=== PATIENT | female | born 1980 | race Caucasian/White ===

== ENCOUNTER 2022-07-14 07:03 | Inpatient (IN) ==
--- NOTE | 2022-07-05 08:24 | Anesthesiology Consultation ---
Date of Service July 05, 2022 Assessment & Plan (1) Encounter for pre-operative examination: Chart Review Chart Review: entry specialist initiated -COVID screening: Per PAT nursing assessment on 07/04/22. No known COVID-19 positive contacts or current COVID-19 related symptoms. Travel screen negative. Patient is NOT vaccinated for Covid. At surgeon discretion if preop Covid testing being done. Patient seen by pediatric cardiology/ cardiology 03/21/2022 = patient referred for assessment echocardiography due to advanced maternal age. is otherwise uncomplicated. echo appears structurally normal. No evidence of major congenital heart disease is detected. Normal biventricular systolic function. No further follow-up in cardiology clinic as necessary. No contraindication from a cardiac standpoint for delivery at [facility]. History Surgery Operation Date: 07/14/22 07:30 Proposed Procedures p Section (Delivery of Baby Through Abdominal Incision) - Nellie Mccarthy MD, FACOG Height/Weight Height: 5 ft 7 in Weight: 96.162 kg Allergies Allergy/AdvReac Type Severity Reaction Status Date / Time morphine AdvReac Intermediate itching Verified 07/04/22 15:15 Medications Home Medications Medication Instructions Recorded Confirmed Last Taken aspirin 81 mg tablet,delayed 81 mg PO QAM 07/04/22 07/04/22 Unknown release ferrous sulfate 325 mg (65 mg 325 mg PO Q2D 07/04/22 07/04/22 Unknown iron) tablet vit no.133-ferrous 1 tab PO QAM 07/04/22 07/04/22 Unknown fumarate 28 mg-folic acid 800 mcg tablet () Past Medical History Medical History History of pre-eclampsia Past Family History Family History Other Heart disease Hypertension No family history of adverse response to anesthesia Past Surgical History Surgical History S/P section 05/2002 Social History Smoking Status: Former smoker Do You Dip or Chew Tobacco: No Smoking End Date: 10/2021 Hx Alcohol Use: No Hx Substance Use: No substance use type: does not use
--- NOTE | 2022-07-11 16:42 | History & Physical Report ---
Date of Service July 11, 2022 Assessment & Plan (1) Previous delivery affecting , antepartum: (2) Supervision of elderly multigravida: Plan Patient presents for elective repeat c/s and tubal ligation. The risks of surgery were discussed with the patient including bleeding, transfusion, infection and poor wound healing, damage to surrounding structures with need for further surgery, injury to baby, and the other risks with surgery--heart attack, blood clot, stroke, . Plan bilateral salpingectomy at the time. Discussed permanence, other options for control, regret. Declines other options for control . Consent reviewed and signed. Questions asked and answered. History of Present Illness Chief Complaint: presents for repeat Primary Care Provider: Keenan Quiñonez MD Patient is a 42yowf with iup at 39 3/7 weeks who presents for elective repeat . She also desires tubal ligation at the time of surgery. She is advanced maternal age and has had normal testing. A hx of preeclampsia in past . No issues this . and Delivery Plans AMA>40@del *Anatomy Scan @ 20wks * Echo - Normal *Growth scan @32wks - 66% *Weekly NST's @36 wks *Twice weekly NST @38wks *Weekly AV's @38wks *Deliver by 41 wks Prior Section affecting C/S SCHEDULED FOR 07/14/[address] HARDY SIGNED MA-31 FORm--desires tubal Preeclampsia in prior - 81mg ASA - PIH labs and 24hr U/protein Rh Negative Rhogam given 04/26/22- OB Labs: Blood Type O Negative 12/23/21 Antibody ScreenE NEGATIVE 04/26/22 Hemoglobin 10.9 g/dl (12.0-16.0) L 04/26/22 Hematocrit 32.1 % (34.1-44.9) L 04/26/22 Mean Corpuscular Volume 87.3 fL (80-100) 12/23/21 Platelet Count 282 K/uL (130-400) 12/23/21 Rubella IgG Antibody Immune (Immune) 12/23/21 Rapid Plasma Reagin Nonreactive (Nonreactive) 12/23/21 Hepatitis B Surface Antigen. NON-REACTIVE (NON-REACTIVE) 12/23/21 Hepatitis C Antibody (EIA) NON-REACTIVE (NON-REACTIVE) 12/23/21 HIV (1&2) Ag and Ab Confirmation NON-REACTIVE (NON-REACTIVE) 12/23/21 Glucose 1 Hour 50 gm Load 173 mg/dl (70-130) H 04/26/22 OB Optional Labs: Chlamydia trachomatis RNA NOT DETECTED (NOT DETECTED) 12/23/21 Neisseria gonorrhoeae RNA NOT DETECTED (NOT DETECTED) 12/23/21 GBS neg did not do genetics/cf/sma passed 28 wekk 2 hr gtt Allergies Allergy/AdvReac Type Severity Reaction Status Date / Time morphine AdvReac Intermediate itching Verified 07/11/22 09:50 Home Medications Medication Instructions Recorded Confirmed Type aspirin 81 mg tablet,delayed 81 mg PO QAM 07/04/22 07/11/22 History release ferrous sulfate 325 mg (65 mg 325 mg PO Q2D 07/04/22 07/11/22 History iron) tablet vit no.133-ferrous 1 tab PO QAM 07/04/22 07/11/22 History fumarate 28 mg-folic acid 800 mcg tablet () Patient History Medical History History of pre-eclampsia Surgical History S/P section 05/2002 Family History Other Heart disease Hypertension No family history of adverse response to anesthesia Social History Smoking Status: Former smoker Second Hand Exposure: No; Hx Alcohol Use: No Hx Substance Use: No Preferred Language: Serbian Communication Ability: Effective Electrical Tech/Project Manager Required: No Beliefs That Will Affect Care: None marital status: Single marital status details: Will (38) [phone] Current Living Situation: Significant Other Current Living Situation Comment: lives with fob, son, and 2 dogs. 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 Feels Safe at Home: Yes Assistive Devices: None OB History Past Pregnancies Del. Date GA wks Lbr Lgth wt Sex Type del Anes Place Del Prov ? Comment 06/10/02 38 7lb 10oz. 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
[~2022-07-14 07:03] MED LIST: CITRIC ACID/SODIUM CITRATE 15 ML UDC PO SCH; LACTATED RINGER'S 1,000 ML IV SCH; ceFAZolin 3,000 MG in DEXTROSE 5% 50 ML IV SCH
--- NOTE | 2022-07-14 07:37 | History & Physical Bridge Note ---
Date of Service July 14, 2022 History & Physical Bridge Note I have examined the patient, reviewed the History & Physical and in the interval since the performance of the History & Physical I have noted the following changes of clinical significance: no changes noted
[2022-07-14 07:47] LABS: Hematocrit (blood only) 35.3 % (34.1-44.9); Hemoglobin 12.2 g/dl (12.0-16.0); Mean Corpuscular Hemoglobin 30.3 pg (25.0-34.0); Mean Corpuscular Hgb Conc 34.6 g/dL (32.0-36.0); Mean Corpuscular Volume 87.6 fL (80.0-100.0); Mean Platelet Volume 11.4 fL (9.4-12.3); Platelet Count 204 K/uL (130-400); RDW Coefficient of Variation 13.7 % (11.5-14.5); RDW Standard Deviation 43.5 fL (36.4-46.3); Red Blood Count 4.03 M/uL (3.93-5.22); White Blood Count 9.62 K/ul (4.8-10.8)
[2022-07-14] MEDS ORDERED: ONDANSETRON INJ 2 MG/ML 2 ML VIAL ONE (09:00)
[2022-07-14] MEDS ORDERED: PHENYLEPHRINE 100MCG/ML 5ML SYR ONE (09:00)
[2022-07-14] MEDS ORDERED: OXYTOCIN 10 UNITS/ML 10ML VIAL ONE (09:00)
[2022-07-14] MEDS ORDERED: MoRPHine SULFATE PF 1 MG/ML 10 ML AMP/VIAL ONE (09:01)
[2022-07-14] MEDS ORDERED: fentaNYL citrate 100 MCG/2 ML VIAL ONE (09:01)
[2022-07-14] MEDS ORDERED: NALOXONE HCL 0.4 MG/1 ML VIAL/CARP IV PRN (10:05)
[2022-07-14] MEDS ORDERED: MoRPHine SULFATE 2 MG/ML CARP IV PRN (10:05)
[2022-07-14] MEDS ORDERED: NALOXONE HCL 1 MG in SODIUM CHLORIDE 0.9% 1000ML 1,000 ML IV PRN (10:05)
[2022-07-14] MEDS ORDERED: NALOXONE HCL 0.08 MG in SYRINGE 1.8 ML IV PRN (10:05)
[2022-07-14] MEDS ORDERED: ONDANSETRON INJ 2 MG/ML 2 ML VIAL IV PRN (10:05)
[2022-07-14] MEDS ORDERED: diphenhydrAMINE 50 MG/ML VIAL IV PRN (10:05)
[2022-07-14] MEDS ORDERED: NALBUPHINE HCL INJ 10 MG/ML AMP IV PRN (10:05)
[2022-07-14] MEDS ORDERED: KETOROLAC 30 MG/ML VIAL IV PRN (10:05)
[2022-07-14] MEDS ORDERED: MoRPHine SULFATE PF 1 MG/ML 10 ML AMP/VIAL INT SPINAL ONE (10:05)
[2022-07-14] MEDS ORDERED: LACTATED RINGER'S 500 ML IV PRN (10:05)
[2022-07-14] MEDS ORDERED: ePHEDrine sulfate 50 MG/ML AMP IV PRN (10:05)
[2022-07-14] MEDS ORDERED: SODIUM CHLORIDE 0.9% 1000ML 1,000 ML IV SCH (10:15)
[2022-07-14] MEDS ORDERED: NO NARCOTICS OR SEDATIVES SCH (10:15)
[2022-07-14] MEDS ORDERED: DC INTRASPINAL MORPHINE SCH (10:15)
[2022-07-14] MEDS ORDERED: diphenhydrAMINE 50 MG/ML VIAL ONE (10:40)
[2022-07-14] MEDS ORDERED: SENNA 8.6 MG TAB PO PRN (11:22)
[2022-07-14] MEDS ORDERED: DIPHTHERIA/TETANUS/PERTUSSIS 0.5 ML SYR/VIAL IM ONE (11:22)
[2022-07-14] MEDS ORDERED: BENZOCAINE 20% AER SPR 82.5 GM CAN EXT PRN (11:22)
[2022-07-14] MEDS ORDERED: HYDROCORTISONE ACETATE 25 MG SUPP PR PRN (11:22)
[2022-07-14] MEDS ORDERED: MAGNESIUM HYDROXIDE SUSP 30 ML UDC PO PRN (11:22)
--- NOTE | 2022-07-14 11:27 | Anesthesiology Progress Note ---
Date of Service July 14, 2022 Anesthesia Post Procedure Vital Signs Vital Signs: Temp Pulse Resp BP Pulse Ox 07/14/22 07:30 36.9 C 18 07/14/22 07:25 36.9 C 18 07/14/22 11:23 69 100 07/14/22 11:24 70 129/60 07/14/22 07:13 115 H 137/76 Transfer of Care Handoff Completed per policy Notes Mental Status: alert / awake / arousable and participated in evaluation Patient Amnestic to Procedure: No Nausea / Vomiting: adequately controlled Pain: adequately controlled Airway Patency, RR, SpO2: stable & adequate BP & HR: stable & adequate Hydration State: stable & adequate Neuraxial Anesthesia: was administered and sensory block is resolving Anesthetic Complications: no major complications apparent and Pt Satisfied with anesthetic care
--- NOTE | 2022-07-14 11:29 | Operative Report ---
PG Post Operative Report Pre & Post Diagnosis Operation Date: 07/14/22 08:50 Pre-Op Diagnosis: at 39 3/7 weeks desires repeat desires sterilization Post-Op Diagnosis: same right ovarian cyst I identified the patient and participated in the time-out.: Yes Procedure Operation Date: 07/14/22 08:50 <No data on this case meets the specified criteria> Repeat lower transverse section Left salpingectomy Right partial salpingectomy Right ovarian cystecomy Surgeon Nellie Mccarthy MD, FACOG Direct Marketing Coordinator [place], farm facility manager Estimated Blood Loss 650 Findings Consistent with Post-Op Diagnosis normal appearing uterus and left tube and ovary. 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 right fimbriated end finally located after cystectomy and appeared normal viable female infant, apgars 9/9. Fluids 1600cc ivf, uop 400cc Specimens left tube partial left tube right ovarian cyst Drains baker Anesthesia Type Spinal Complications none Disposition Accompanied Patient To Recovery: Yes Disposition: L&D Indications Patient is a 42yowf with iup at 39 weeks who presents for repeat c/s and sterilization. Description of Procedure The patient was taken to the operating room where she was identified verbally and by bracelet. She was seated on the operating table where a spinal anesthetic was placed by anesthesia. She was then placed in the supine position with a leftward tilt. A Baker catheter was placed sterilely. the patient was prepped and draped in a normal standard fashion. the anesthetic was tested and found to be adequate. A time-out was held, identifying correct patient, procedure, positioning and preoperative antibiotics. There were no concerns. A Pfannenstiel skin incision was made with a knife and taken down to the underlying layer of fascia with the knife and Bovie electrocautery. Bleeding was attended to with the Bovie. The fascia was incised in the midline with the knife and taken out laterally with scissors. The superior edge of the fascial incision was grasped, elevated and the underlying layer of rectus muscle was taken off bluntly and with scissors. The fascia was quite adherent. In a similar fashion, the inferior edge of the fascial incision was grasped, elevated and the underlying layer of rectus muscle was taken off bluntly and with scissors. The muscles were bluntly in the midline. The peritoneum was entered bluntly. The incision was then stretched. The bladder blade was placed. The vesicouterine peritoneum was identified, entered with scissors and taken out laterally with scissors. The bladder flap was created digitally A hysterotomy incision was scored with a knife and the incision was stretched superiorly and inferiorly with the twine reeling machine operator's fingers. The operators hand was placed into the incision and the head was delivered atraumatically. A loose nuchal cord x 1 was reduced. The nose and mouth were bulb suctioned. the rest of the was then delivered without difficulty. The nose and mouth were again bulb suctioned. The cord was clamped and cut and the was then handed off to the awaiting lumber chain offbearer for drying and attention. Cord blood and segment were obtained. The placenta was Manually extracted. The uterus was exteriorized and cleared of all clot and debris with moistened laparotomy sponges. The hysterotomy incision was repaired in a running locked layer Hemostasis was noted to be good. Posterior cul-de-sac was irrigated and cleared of all clot and debris. The hysterotomy incision was again inspected and found to be hemostatic. Attention was then turned to the left adnexa. We then removed the entire left tube with the ligasure. Hemostasis was good. Attention was then turned to the right tube. It was on stretch and adhesed around the left ovary. There was a cystic mass on the left ovary that appears to be a dermoid. This was approximately 5cm. I first removed most of the tubal length with the ligasure. I could not see the fimbriated end at this point. I received verbal consent fir removal of the cyst. The ovarian cortex was incised with a bovie, it was then undermined with scissors. Then using snaps to break up adhesions under the ovarian cortex, the cyst was removed from the thin ovarian cortex until the mass was removed. It was difficult to diferentiate the ovary at this point. There was oozing from the bed of the cystectomy. A hole was made underneath the tuboovarian ligament and two 3-0 vicryl sutures were use to tie off the ozing area. This was watched for several minutes and hemostasis was noted to be adequate. I was then able to visualize the fimbriated end which appeared normal but because of the oozing, decided to leave this. The hysterotomy incision was again inspected and a second imbricating layer was done. the uterus was reinteriorized. Hysterotomy incision was again inspected and found to be hemostatic. The tubal sites and cystectomy site was then inspected and appeared hemostatic. Some oozing under the fascia and the upper left rectus muscle was attended to with cautery. Rectus muscles were reapproximated with several interrupted stitches of 0 Vicryl. The fascia was then reapproximated with 0 Vicryl starting at the edges and meeting in the midline. After reapproximating the left side of the incision , I noted pooling blood. I removed the fascia and rectus muscle sutures. I reexamined the tubal and cyst bed. I reexteriorized the uterus and found that one of the sutures around the cystic bed had fallen apart and there was oozing from this. I then placed two additional ties or 3-0 vicryl around this area. Hemostasis was then good. The uterus was replaced, the beds again inspected and were hemostatic. The rectus muscles were reapproximated and the fascia was closed with 0 vicryl. The subcuticular tissues were copiously irrigated and bleeding was attended to with cautery. The skin was then closed with 4-0 Vicryl in a subcuticular fashion. All sponge lap and needle counts were correct x 2. The patient tolerated the procedure well and was taken to the recovery room in stable condition. I attest to the content of the Intraoperative Record and any orders documented therein. Any exceptions are noted below. OB Procedure Charges 07303 (plus left ovarian cystectomy) 94482 Add on Tubal for C/S
[2022-07-14] MEDS ORDERED: LACTATED RINGER'S 1,000 ML IV SCH (11:30)
[2022-07-14] MEDS: OXYTOCIN 20 UNITS in LACTATED RINGER'S 1,000 ML IV SCH ×2 (13:10→22:40)
[2022-07-14] MEDS: SIMETHICONE 80 MG CHEW PO SCH ×3 (17:44→20:37)
[2022-07-14] MEDS: DOCUSATE SODIUM 100 MG CAP PO SCH (20:37)
[2022-07-15] MEDS ORDERED: ONDANSETRON INJ 2 MG/ML 2 ML VIAL IV PRN (04:05)
[2022-07-15] MEDS ORDERED: PROMETHAZINE HCL 25 MG in SODIUM CHLORIDE 0.9% 50 ML IV PRN (04:05)
[2022-07-15] MEDS ORDERED: diphenhydrAMINE 50 MG/ML VIAL IV PRN (04:05)
[2022-07-15] MEDS ORDERED: KETOROLAC 30 MG/ML VIAL IV PRN (04:05)
[2022-07-15] MEDS ORDERED: diphenhydrAMINE Capsule 25 MG CAP PO PRN (04:05)
[2022-07-15] MEDS ORDERED: MEPERIDINE HCL 50 MG/ML CARP IV PRN (04:05)
--- NOTE | 2022-07-15 07:11 | Obstetrical Progress Note ---
Date of Service <Dharmesh DeJasmeet Ariela - Last Filed: 07/15/22 07:45> July 15, 2022 Assessment & Plan <Dharmesh DeJasmeet ArielaDO - Last Filed: 07/15/22 07:45> (1) S/P section: - Feels well today. Eating well,has not attempted to ambulate or void yet. - Pain well controlled with ibuprofen 600mg Q4H PRN and Percocet 5/325 Q4H PRN. - Routine care -- OOB, ambulation, diet progression as tolerated - After discharge will have 6 week follow-up with Dr. Mccarthy. (2) Previous delivery affecting , antepartum: (3) S/P tubal ligation: <Primo Zepeda MD, FACOG - Last Filed: 07/15/22 07:46> (1) S/P section: (2) Previous delivery affecting , antepartum: (3) S/P tubal ligation: Subjective <Dharmesh DeJasmeet AnaDO agustina - Last Filed: 07/15/22 07:45> Patient is a 42 y/o female who is POD #1 following delivery with tubal ligation at 39 weeks. She reports feeling well overall this morning. Mild abdominal cramping & 3/10 pain well managed on analgesics. Has not voided yet. Tolerating liquid diet overnight and has not tried to ambulate yet. Has not past gas or had a bowel movement. Has some persistent lochia with some improvement this morning. Currently breast feeding. Review of Systems Denies fever, chills, sweats Denies shortness of breath, difficulty breathing, chest pain, palpitations, chest pressure. Denies breast pain. Denies dysuria. Denies headache or changes in vision. Physical Exam <Dharmesh DeJasmeet AnaDO agustina - Last Filed: 07/15/22 07:45> General: Alert, oriented. No acute distress. Cardiac: Regular rate and rhythm, no murmurs/rubs/gallops. Respiratory: Clear to auscultation bilaterally a/p, no wheezes/rales/rhonchi. No increased work of breathing. Symmetrical chest rise. No respiratory distress. Abdomen: Soft, nontender, nondistended. Bowel sounds present. Uterus: Uterine fundus firm, palpable 1-2 cm below umbilicus. Lower Extremities: No lower extremity edema or swelling. No deep calf pain. Ana's negative bilaterally. Results & Data ([facility]) <Dharmesh Titus DO - Last Filed: 07/15/22 07:45> Vital Signs (Past 12 Hours) Vital Signs Temp Pulse Resp BP Pulse Ox O2 Del Method 07/15/22 05:00 18 97 07/15/22 04:00 18 97 07/15/22 03:00 18 97 07/15/22 02:00 18 97 07/15/22 03:52 36.8 C 78 18 113/72 98 Room Air 07/15/22 01:00 18 97 07/14/22 23:00 18 97 07/14/22 22:00 18 97 07/14/22 21:00 18 98 07/14/22 20:00 18 97 07/15/22 00:00 18 98 07/14/22 23:38 36.8 C 72 18 119/74 98 Room Air 07/14/22 20:45 36.8 C 77 18 143/82 H 98 Room Air <Primo Zepeda MD, FACOG - Last Filed: 07/15/22 07:46> Co-Signing Physician Notes Resident Physician Supervision Note: I was present with Dr. Titus during the history and exam. I discussed the case with the resident and agree with the findings and plan as documented in the note. Any exceptions or clarifications are listed here: [None] Documented By: Primo Zepeda MD, FACOG Resident Activity Tracking <Dharmesh Titus DO - Last Filed: 07/15/22 07:45> Resident Involvement: Resident Care Provided Care Provided: OB Delivery
[2022-07-15 07:35] LABS: Basophils # (auto) 0.03 K/uL (0-0.2); Basophils % (auto) 0.2 %; Eosinophils % (auto) 0.8 %; Hematocrit (blood only) 30.3 % (34.1-44.9); Hemoglobin 10.4 g/dl (12.0-16.0); Immature Granulocytes # (auto) 0.09 K/uL (0.00-0.02); Immature Granulocytes % (auto) 0.7 %; Lymphocytes # (auto) 1.26 K/uL (1.2-3.4); Lymphocytes % (auto) 10.1 %; Mean Corpuscular Hemoglobin 29.7 pg (25.0-34.0); Mean Corpuscular Hgb Conc 34.3 g/dL (32.0-36.0); Mean Corpuscular Volume 86.6 fL (80.0-100.0); Mean Platelet Volume 11.1 fL (9.4-12.3); Monocytes # (auto) 0.97 K/uL (0.24-0.82); Monocytes % (auto) 7.8 %; Neutrophils # (auto) 9.98 K/uL (1.4-6.5); Neutrophils % (auto) 80.4 %; Platelet Count 203 K/uL (130-400); RDW Coefficient of Variation 13.6 % (11.5-14.5); RDW Standard Deviation 42.2 fL (36.4-46.3); White Blood Count 12.43 K/ul (4.8-10.8)
[2022-07-15] MEDS: FERROUS SULFATE 325 MG TAB PO SCH (09:13)
[2022-07-15] MEDS: DOCUSATE SODIUM 100 MG CAP PO SCH ×2 (09:13→20:39)
[2022-07-15] MEDS: SIMETHICONE 80 MG CHEW PO SCH ×4 (09:13→20:39)
[2022-07-15] MEDS: oxyCODONE/ACETAMINOPHEN 5mg/325mg TAB PO PRN ×3 (09:13→18:10)
[2022-07-15] MEDS: PRENATAL VITAMIN 1 TAB PO SCH (09:13)
[2022-07-15] MEDS: IBUPROFEN 600 MG TAB PO PRN ×3 (09:14→18:10)
[2022-07-15] MEDS ORDERED: bisacodyL 5 MG TABEC PO SCH (20:00)
[2022-07-16] MEDS: IBUPROFEN 600 MG TAB PO PRN ×4 (05:39→22:32)
[2022-07-16] MEDS: oxyCODONE/ACETAMINOPHEN 5mg/325mg TAB PO PRN ×3 (05:39→22:31)
[2022-07-16 07:50] LABS: Hemoglobin 9.5 g/dl (12.0-16.0)
--- NOTE | 2022-07-16 08:13 | Obstetrical Progress Note ---
Date of Service July 16, 2022 Assessment & Plan (1) S/P section: Plan Doing well. Will continue to work with breast feeding. Continue pain meds. Routine care. Subjective Ambulation: ambulating normally Voiding: no voiding problems Passing Gas:: Yes Diet Tolerance:: regular diet Lochia:: Small Feeding Type:: breast feeding Srtuggling a little with breast feeding. Notes more sore this am than yesterday but that pain meds help. Physical Exam Constitutional WD/WN, vitals as above Cardiovascular Extremities: + edema (tr); no calf tenderness Gastrointestinal (Abdomen) soft, appro tender, nd incision c/d/i ff/appropriately tender at u Psychiatric A+Ox3, euthymic affect Results & Data ([facility]) Vital Signs (Past 12 Hours) Vital Signs Temp Pulse Resp BP Pulse Ox O2 Del Method 07/15/22 23:10 36.5 C 85 18 120/75 95 Room Air 07/15/22 20:45 36.7 C 78 18 100/63
[2022-07-16] MEDS: FERROUS SULFATE 325 MG TAB PO SCH (09:07)
[2022-07-16] MEDS: DOCUSATE SODIUM 100 MG CAP PO SCH ×2 (09:07→20:04)
[2022-07-16] MEDS: PRENATAL VITAMIN 1 TAB PO SCH (09:07)
[2022-07-16] MEDS: SIMETHICONE 80 MG CHEW PO SCH ×4 (09:07→20:04)
[2022-07-16] MEDS ORDERED: bisacodyL 10 MG SUPP PR PRN (11:22)
--- NOTE | 2022-07-17 07:10 | Obstetrical Progress Note ---
Date of Service <Dharmesh Titus DO - Last Filed: 07/17/22 07:10> July 17, 2022 Assessment & Plan <Dharmesh Titus DO - Last Filed: 07/17/22 07:10> (1) S/P section: - Feels well today. Eating well, voiding well, ambulating well. - Pain well controlled with ibuprofen and Percocet - Routine care -- OOB, ambulation, diet progression as tolerated - After discharge will have 6 week follow-up with Dr. Mccarthy. Day #:: 3 <Nellie Mccarthy MD, FACOG - Last Filed: 07/17/22 07:17> (1) S/P section: Subjective <Dharmesh Titus DO - Last Filed: 07/17/22 07:10> Ambulation: ambulating normally Voiding: no voiding problems Passing Gas:: Yes Diet Tolerance:: regular diet Lochia:: Small Feeding Type:: breast feeding Current Pain Level(1-10): 2 Review of Systems Denies fever, chills, sweats Denies shortness of breath, difficulty breathing, chest pain, palpitations, chest pressure. Denies breast pain. Denies dysuria. Denies headache or changes in vision. Physical Exam <Dharmesh Titus DO - Last Filed: 07/17/22 07:10> General: Alert, oriented. No acute distress. Cardiac: Regular rate and rhythm, no murmurs/rubs/gallops. Respiratory: Clear to auscultation bilaterally a/p, no wheezes/rales/rhonchi. No increased work of breathing. Symmetrical chest rise. No respiratory distress. Abdomen: Soft, nontender, nondistended. Bowel sounds present. Uterus: Uterine fundus firm, palpable 2 cm below umbilicus. Lower Extremities: No lower extremity edema or swelling. No deep calf pain. Ana's negative bilaterally. Results & Data ([facility]) <Dharmesh Titus DO - Last Filed: 07/17/22 07:10> Vital Signs (Past 12 Hours) Vital Signs Temp Pulse Resp BP Pulse Ox O2 Del Method 07/16/22 23:10 36.4 C L 80 16 120/74 97 Room Air 07/16/22 20:00 Room Air 07/16/22 20:00 36.4 C L 91 H 18 136/84 98 Room Air <Nellie Mccarthy MD, FACOG - Last Filed: 07/17/22 07:17> Co-Signing Physician Notes Resident Physician Supervision Note: I interviewed and examined the patient. Discussed with Dr. Titus and agree with findings and plan as documented in the note. Any exceptions or clarifications are listed here: Doing well. Plan d/c. Instructions given. Documented By: Nellie Mccarthy MD, FACOG Resident Activity Tracking <Dharmesh Titus DO - Last Filed: 07/17/22 07:10> Resident Involvement: Resident Care Provided Care Provided: OB Delivery
[2022-07-17] MEDS: PRENATAL VITAMIN 1 TAB PO SCH (08:07)
[2022-07-17] MEDS: SIMETHICONE 80 MG CHEW PO SCH (08:07)
[2022-07-17] MEDS: oxyCODONE/ACETAMINOPHEN 5mg/325mg TAB PO PRN (08:07)
[2022-07-17] MEDS: FERROUS SULFATE 325 MG TAB PO SCH (08:07)
[2022-07-17] MEDS: DOCUSATE SODIUM 100 MG CAP PO SCH (08:07)
[2022-07-17] MEDS: IBUPROFEN 600 MG TAB PO PRN (08:08)
--- NOTE | 2022-07-18 12:36 | Discharge Summary ---
Date of Service July 18, 2022 Admission HPI Per Admitting Provider Patient is a 42yowf with iup at 39 3/7 weeks who presents for elective repeat . She also desires tubal ligation at the time of surgery. She is advanced maternal age and has had normal testing. A hx of preeclampsia in past . No issues this . and Delivery Plans AMA>40@del *Anatomy Scan @ 20wks * Echo - Normal *Growth scan @32wks - 66% *Weekly NST's @36 wks *Twice weekly NST @38wks *Weekly AV's @38wks *Deliver by 41 wks Prior Section affecting C/S SCHEDULED FOR 07/14/[address] HARDY SIGNED MA-31 FORm--desires tubal Preeclampsia in prior - 81mg ASA - PIH labs and 24hr U/protein Rh Negative Rhogam given 04/26/22- OB Labs: Blood Type O Negative 12/23/21 Antibody Screen NEGATIVE 04/26/22 Hemoglobin 10.9 g/dl (12.0-16.0) L 04/26/22 Hematocrit 32.1 % (34.1-44.9) L 04/26/22 Mean Corpuscular Volume 87.3 fL (80-100) 12/23/21 Platelet Count 282 K/uL (130-400) 12/23/21 Rubella IgG Antibody Immune (Immune) 12/23/21 Rapid Plasma Reagin Nonreactive (Nonreactive) 12/23/21 Hepatitis B Surface Antigen. NON-REACTIVE (NON-REACTIVE) 12/23/21 Hepatitis C Antibody (EIA) NON-REACTIVE (NON-REACTIVE) 12/23/21 HIV (1&2) Ag and Ab Confirmation NON-REACTIVE (NON-REACTIVE) 12/23/21 Glucose 1 Hour 50 gm Load 173 mg/dl (70-130) H 04/26/22 OB Optional Labs: Chlamydia trachomatis RNA NOT DETECTED (NOT DETECTED) 12/23/21 Neisseria gonorrhoeae RNA NOT DETECTED (NOT DETECTED) 12/23/21 GBS neg did not do genetics/cf/sma passed 28 wekk 2 hr gtt Discharge Data Consultations 07/14/22 07:26 Consult Anesthesiology Stat Procedures Performed Operation Date: 07/14/22 08:50 Actual Procedures p Section (Delivery of Baby Through Abdominal Incision) for living girl at 1017. (Bilateral) - Nellie Hardy MD, [facility] s Post Tubal Ligation Labor & Deliv - Nellie Hardy MD, [facility] s Ovarian Cystectomy - Nellie Hardy MD, [facility] Hospital Course (1) S/P tubal ligation: (2) S/P section: Plan The patient underwent a repeat c/s, bilateral tubal and left ovarian cystectomy for an incidentally found cyst. Her /postop course was uncomplicated. She tolerated a regular diet, voided after the removal of her baker catheter, ambulated without difficulty and had her pain well controlled with oral pain meds. Her d/c H/H were 9.8/28.0. She was d/c home on postop day 3. She will return in 6 weeks for visit. Coding Level of Care Code None Diagnoses S/P tubal ligation Z98.51 S/P section Z98.891
== END 2022-07-17 11:30 | disposition home or self-care (01) | DRG 785 ==
LOC: 4S1 07:03 → EDSTATUS 07:30 → 4E2 14:42
PROC: M.PPTLD (2022-07-14 08:50)